=== PATIENT | female | born 1970 | race Two or more races ===

== ENCOUNTER 2025-01-12 14:58 | Emergency (ER) | payer MEDICAID, OTHER ==
[~2025-01-12] VITALS: Ht 165.1 cm; Wt 93.9 kg
[2025-01-12 14:59] VITALS: BP 151/80; PULSE 67; RESP 16; TEMP 98.4; O2SAT 94
--- NOTE | 2025-01-12 16:23 | ED.PDOC ---
Musculoskeletal HPI Comments 54 year old female presents to the ED with chief complaint of right shoulder pain. Patient reports that she has been experiencing right shoulder pain and limited ROM since 12/22/24 after helping transport her brother from a gurney to his bed. Patient relays that she heard a "pop" at the time and her pain has continued since then. Patient states she is unable to lift her arm up well and the pain radiates down to her fingers. Patient denies any fall, injury, numbness, weakness, or tingling of right upper extremity. Chief Complaint: Upper Extremity Time Seen by MD: 16:20 Primary Care Provider: NONE Reviewed Notes: Nurses Notes, Medications, Allergies Allergies: Coded Allergies: Metronidazole (Verified Allergy, Severe, 01/12/25) Information Source: Patient Mode of Arrival: Ambulatory Location: Right Extremity Location: Shoulder Timing: Days Prehospital treatment: None Severity: Moderate Able to Move Extremity: Yes Bear Weight: Fully Pain: Moderate Mechanism: Hyperextension Circumstances: Other (Helping brother from bed) Symptoms: Pain DVT Risk Factors: NONE Associated signs and symptoms: Shoulder pain Past Medical History PAST MEDICAL HISTORY: Denies Surgical History: Denies all surgeries SURVEILLANCE SYSTEM MONITOR History: No Pertinent SURVEILLANCE SYSTEM MONITOR History Family History Family History: Reviewed,noncontributory to illness Social History Smoker: Non-Smoker Alcohol: Denies ETOH Use Drugs: Denies Drug Use Lives In: Home Constitutional: denies: chills, diaphoresis, fatigue, fever, malaise, sweats, weakness, others EENTM: denies: blurred vision, double vision, ear bleeding, ear discharge, ear drainage, ear pain, ear ringing, eye pain, eye redness, hearing loss, mouth pain, mouth swelling, nasal discharge, nose bleeding, nose congestion, nose pain, photophobia, tearing, throat pain, throat swelling, voice changes, others Respiratory: denies: cough, hemoptysis, orthopnea, SOB at rest, shortness of breath, SOB with excertion, stridor, wheezing, others Cardiovascular: denies: chest pain, dizzy spells, diaphoresis, Dyspnea on exertion, edema, irregular heart beat, left arm pain, lightheadedness, palpitations, PND, syncope, others Gastrointestinal: denies: abdomen distended, abdominal pain, blood streaked bowels, constipated, diarrhea, dysphagia, difficulty swallowing, hematemesis, melena, nausea, poor appetite, poor fluid intake, rectal bleeding, rectal pain, vomiting, others Genitourinary: denies: abnormal vagina bleeding, burning, dyspareunia, dysuria, flank pain, frequency, hematuria, incontinence, pain, , vagina discharge, urgency, others Neurological: denies: dizziness, fainting, headache, left sided numbness, left sided weakness, numbness, paresthesia, pre-existing deficit, right sided numbness, right sided weakness, seizure, speech problems, tingling, tremors, weakness, others Musculoskeletal: reports: others (Rt shoulder pain); denies: back pain, gout, joint pain, joint swelling, muscle pain, muscle stiffness, neck pain Integumetry: denies: bruises, change in color, change in hair/nails, dryness, laceration, lesions, lumps, rash, wounds, others Allergic/Immunocompromised: denies: Difficulty Healing, Frequent Infections, Hives, Itching, others Hematologic/Lymphatic: denies: anemia, blood clots, easy bleeding, easy bruising, swollen glands, others Endocrine: denies: excessive hunger, excessive sweating, excessive thirst, excessive urination, flushing, intolerance to cold, intolerance to heat, unexplained weight gain, unexplained weight loss, others Psychiatric: denies: anxiety, bipolar disorder, depression, hopeless, panic disorder, schizophrenia, sleepless, suicidal, others All Other Systems: Reviewed and Negative Physical Exam General Appearance: No Apparent Distress, Normal HEENT: Normal ENT Inspection, Pharynx Normal, TMs Normal Neck: Full Range of Motion, Non-Tender, Normal, Normal Inspection Respiratory: Chest Non-Tender, Lungs Clear, No Accessory Muscle Use, No Respiratory Distress, Normal Breath Sounds Cardiovascular: No Edema, No JVD, No Murmur, No Gallop, Normal Peripheral Pulses, Regular Rate/Rhythm Breast Exam: Deferred Gastrointestinal: No Organomegaly, Non Tender, No Pulsatile Mass, Normal Bowel Sounds, Soft Genitalia: Deferred Pelvic: Deferred Rectal: Deferred Extremities: No calf tenderness, Normal capillary refill, Normal inspection, Normal range of motion, Non-tender, No pedal edema Musculoskeletal : Location: Right Extremity Location: Shoulder Apperance: Tenderness (Limited ROM to the right shoulder. Diffuse tenderness to the right deltoid. Distal circulation and motor skills intact.) Neurologic: Alert, bottle blower II-XII nml as Tested, No Motor Deficits, Normal Affect, Normal Mood, No Sensory Deficits Cerebellar Function: Normal Reflexes: Normal Skin: Dry, Normal Color, Warm Lymphatic: No Adenopathy Was a procedure done? Was a procedure done?: No Differential Diagnosis EXT Differential Diagnosis: Fracture, Sprain, Dislocation, Contusion, Strain X-Ray, Labs, Meds, VS Vital Signs Date Time Temp Pulse Resp B/P (MAP) Pulse Ox O2 Delivery O2 Flow Rate FiO2 01/12/25 14:59 98.4 67 16 151/80 (103) 94 98.4 Time of 1ST Reevaluation: 17:20 Reevaluation 1ST: Unchanged Patient Education/Counseling: Diagnosis, Treatment Family Education/Counseling: No Family Present Departure 1 Departure Time of Disposition: 17:52 Impression: Primary Impression: Right shoulder injury Qualified Codes: S49.91XA - Unspecified injury of right shoulder and upper arm, initial encounter Disposition: HOME / SELF CARE / HOMELESS Condition: Fair e-Prescriptions Ibuprofen (Ibuprofen) 600 Mg Tab 1 TAB PO TID, #30 TAB Prov: EDITH MIDDLETON 01/12/25 Methylprednisolone (Medrol Dosepak) 4 Mg Ady 4 MG PO UD, #21 TAB UAD Prov: EDITH MIDDLETON 01/12/25 Discharged With: Self Critical Care Note Critical Care Time?: No Stability Stability form required: No Heart Score Heart Score: Heart Score Response (Comments) Value History N/A 0 EKG N/A 0 Age N/A 0 Risk Factors N/A 0 Troponin N/A 0 Total 0 I personally scribed for EDITH MIDDLETON ([email or web address]) on 01/12/25 at 16:23. Electronically submitted by Rupert Rascon ([email or web address]). EDITH MIDDLETON January 12, 2025 16:23
[2025-01-12] MEDS ORDERED: KETOROLAC TROMETH 30 MG/ML 1ML VIAL IM ONE (16:30)
--- NOTE | 2025-01-12 17:11 | DVH ---
EXAM: XR Right Clavicle Complete, 2 or More Views CLINICAL INDICATION: pain TECHNIQUE: Frontal and lordotic views of the right clavicle. COMPARISON: None FINDINGS: BONES/JOINTS: Mild degenerative changes of the acromioclavicular and glenohumeral joints. No dislo cation. No acute fracture. SOFT TISSUES: Unremarkable. OTHER FINDINGS: . . IMPRESSION: No acute fracture.
[2025-01-12] MEDS ORDERED: METH4PAK PO (17:53)
[2025-01-12] MEDS ORDERED: IBUP-1454 PO (17:53)
== END 2025-01-12 21:22 | disposition home or self-care (01) ==
LOC: ER 14:58
DX: S49.91XA Unspecified injury of right shoulder and upper arm, initial encounter (principal); Z88.1 Allergy status to other antibiotic agents; X58.XXXA Exposure to other specified factors, initial encounter; Y93.89 Activity, other specified; Y92.89 Other specified places as the place of occurrence of the external cause; Y99.8 Other external cause status
CPT/HCPCS: 73030

== ENCOUNTER 2025-02-04 13:50 | Inpatient (IN) | payer MEDICAID ==
[~2025-02-04] VITALS: Ht 165.1 cm; Wt 101.8 kg
[~2025-02-04 13:50] MED LIST: IBUP-1454 PO; METH4PAK PO
[2025-02-04] MEDS: FAMOTIDINE (10MG/ML) 2ML VL IV ONE (16:00)
[2025-02-04] MEDS: diphenhdrAMINE HCL 50 MG/1 ML VL IV ONE ×2 (16:00→21:03)
--- NOTE | 2025-02-04 16:03 | ED.PDOC ---
HPI Allergic reaction HPI Comments HPI: 54-year-old female presents to the ED with a chief complaint of rash onset 2 days. Patient states she used hair dye 2 days ago, noticed rash on head and ears as well as facial rash. Yesterday, she noticed rash had spread to trunk, bilateral arms, shoulders and thighs. She has experienced similar episodes with hair dye in the past. Denies headache, dizziness, chest pain, shortness of breath, wheezing, fever, chills. No other symptoms or modifying factors present at this time. Vitals Temperature: 98.8 F Respiratory rate: 16 SpO2: 97% Heart rate: 81 Blood pressure: 135/92 Past Medical History: none Past Surgical History: none Social History: none GARCIA: RASH 2 DAYS. DIFFUSE. DUE TO HAIR DYE. HPI: Poor Historian. Past Medical History: Past Surgical History: REVIEW OF SYSTEMS: CONSTITUTIONAL: Denies acute: fever, diaphoresis, chills, generalized weakness. HEAD: Denies acute: headache, photophobia Eyes: Denies acute: Double vision, vision loss, eye pain, eye discharge. EARS: Denies acute: tinnitus, hearing loss, ear discharge, ear pain, THROAT: Denies acute: sore throat, swelling, difficulty swallowing , pain with swallowing, change in voice. NECK: Denies acute: neck pain, neck swelling, stiff neck. HEART: Denies acute : chest pain, palpitations, LUNGS: Denies acute: SOB, wheezing, cough, hemoptysis ABDOMEN: Denies acute: abdominal pain, Nausea, Vomiting, diarrhea, melena , hematemesis, hematochezia SKIN: Denies acute: lesions, . EXTREMITIES: Denies acute: calf pain, numbness, tingling, weakness, denies pain in extremity. Denies acute: Low back pain. Neuro: Denies acute: focal neurological deficit, motor or sensory focal neurological deficit, tremors, seizure like activity, confusion, dizziness, change in mental status, loss of bowel or bladder function, cauda equina like symptoms. : Denies acute: dysuria, hematuria, flank pain, increase in urinary frequency. PSYCH: Denies acute: hallucination, suicidal ideation, homicidal ideation. FEMALE: Denies acute: abnormal vaginal bleeding, foul odor, unusual discharge. PHYSICAL EXAM: General: -----mild---acute distress, awake and alert. Head: normocephalic, atraumatic. Neck: supple, trachea is midline, no swelling. Throat: Normal phonation. No obstruction, no swelling, no erythema Eyes:, no erythema, no purulent discharge, no proptosis, no icterus. Heart: regular rate, regular rhythm, no significant murmur appreciated. Lungs: no apparent respiratory distress, Able to speak in full sentences. No wheezing, no rhonchi, no crackles. No stridors Clear to auscultation bilaterally. Abdomen: non tender to palpation, non distended, soft, no guarding, no rebound, + bowel sounds. Neuro: Awake, Alert, oriented to name, self, situation, follows commands GCS=15. Speech is normal. Skin: no petechia, no purpura, no cyanosis, non-pale, not jaundice. Patient has a diffuse hives on the torso neck and back of the neck and behind the ears and in the posterior neck below the hairline. And diffusely in the face. Lower extremities: --no - Pitting edema no deformity, no focal swelling, no calf TTP. Makes eye contact. moves all four extremities. Face: no apparent facial droop. Ambulating in the ED independently. No nystagmus. No nuchal rigidity, Kernig's sign, Brudzinski's sign, no meningeal signs. ED COURSE: Chief Complaint: Rash Time Seen by MD: 15:35 Primary Care Provider: NONE Reviewed Notes: Medications, Allergies Allergies: Coded Allergies: Metronidazole (Verified Allergy, Severe, 01/12/25) Home Meds Active Scripts Ibuprofen (Ibuprofen) 600 Mg Tab, 1 TAB PO TID, #30 TAB Prov:EDITH MIDDLETON 01/12/25 Methylprednisolone (Medrol Dosepak) 4 Mg Ady, 4 MG PO UD, #21 TAB UAD Prov:EDITH MIDDLETON 01/12/25 Information Source: Patient Mode of Arrival: Ambulatory Severity: Mild Rash: Moderate Timing: Days Duration: Since onset Prehospital treatment: None Location: Ear, Extremities, Face, Neck, Trunk Exposed to: Chemical (hair dye) Developed: Facial Swelling, Generalized erythema, Rash History of: Prior Similar Episodes (with hair dye) Modyifying Factors: None Associated Sign and Symptoms: None Past Medical History PAST MEDICAL HISTORY: Denies Surgical History: Denies all surgeries DESIGN CELL ENGINEER History: No Pertinent DESIGN CELL ENGINEER History Family History Family History: Reviewed,noncontributory to illness Social History Smoker: Non-Smoker Alcohol: Denies ETOH Use Drugs: Denies Drug Use Lives In: Home Was a procedure done? Was a procedure done?: No Differential diagnosis (all) Differential Diagnosis: Anaphylaxis, Angioedema, Bronchospasm, Contact Dermatitis, Drug Reaction, Hypotension, Renal Failure, Respiratory Failure, Shock, Urticaria X-Ray, Labs, Meds, VS Vital Signs Date Time Temp Pulse Resp B/P (MAP) Pulse Ox O2 Delivery O2 Flow Rate FiO2 02/04/25 20:59 98.2 61 18 136/90 (105) 94 98.2 02/04/25 16:24 98.4 83 18 133/94 (107) 93 98.4 02/04/25 14:08 98.8 81 16 135/92 (106) 97 98.8 Lab Test 02/04/25 16:26 Range/Units White Blood Count 10.4 4.4-10.8 10^3/uL Red Blood Count 4.94 4.0-5.20 10^6/uL Hemoglobin 15.8 12.2-16.2 g/dL Hematocrit 47.1 H 36.0-46.0 % Mean Corpuscular Volume 95.3 80.0-100.0 fL Mean Corpuscular Hemoglobin 31.9 28.0-32.0 pg Mean Corpuscular Hemoglobin Concent 33.5 32.0-36.0 g/dL Red Cell Distribution Width 13.3 11.8-14.3 % Platelet Count 261 140-450 10^3/uL Mean Platelet Volume 8.6 6.9-10.8 fL Neutrophils (%) (Auto) 61.9 37.0-80.0 % Lymphocytes (%) (Auto) 22.3 10.0-50.0 % Monocytes (%) (Auto) 8.1 0.0-12.0 % Eosinophils (%) (Auto) 7.0 0.0-7.0 % Basophils (%) (Auto) 0.7 0.0-2.0 % Neutrophils # (Auto) 6.4 1.6-8.6 10 ^3/uL Lymphocytes # (Auto) 2.3 0.4-5.4 10 ^3/uL Monocytes # (Auto) 0.8 0-1.3 10 ^3/uL Eosinophils # (Auto) 0.7 0-0.8 10 ^3/uL Basophils # (Auto) 0.1 0-0.2 10 ^3/uL Nucleated Red Blood Cells 0.0 % Erythrocyte Sedimentation Rate 13 0-20 mm/hr Sodium Level 146 H 136-145 mmol/L Potassium Level 3.9 3.5-5.1 mmol/L Chloride Level 114 H 98-107 mmol/L Carbon Dioxide Level 25 20-31 mmol/L Anion Gap 7 5-15 Blood Urea Nitrogen 18 9-23 mg/dL Creatinine 1.04 H 0.550-1.02 mg/dL Glomerular Filtration Rate Calc 63 >90 mL/min BUN/Creatinine Ratio 17.3 10.0-20.0 Serum Glucose 92 74-106 mg/dL Calcium Level 10.3 8.7-10.4 mg/dL Magnesium Level 2.2 1.6-2.6 mg/dL Total Bilirubin 0.4 0.2-1.0 mg/dL Aspartate Amino Transferase (AST) 17 13-40 U/L Alanine Aminotransferase (ALT) 31 7-40 U/L Alkaline Phosphatase 67 46-116 U/L C-Reactive Protein High Sensitivity 0.60 <1.0 mg/dL Total Protein 7.2 5.7-8.2 g/dL Albumin 4.6 3.2-4.8 g/dL Thyroid Stimulating Hormone (TSH) 0.92 0.55-4.78 uIU/mL Hepatitis A IgM Antibody Pending Hepatitis B Surface Antigen Pending Hepatitis B Core IgM Antibody Pending Hepatitis C Antibody Pending Current Medications Medications (Trade) Dose Ordered Sig/Alyssa Route Start Time Stop Time Status Last Admin Sodium Chloride 1,000 ml @ 1,000 mls/hr Q1H ONCE IV 02/04/25 16:00 02/04/25 16:59 DC 02/04/25 17:00 Methylprednisolone Sodium Succinate (Solu Medrol) 125 mg ONCE ONCE IV 02/04/25 16:00 02/04/25 16:01 DC 02/04/25 17:00 Famotidine (Pepcid Injection) 20 mg ONCE ONCE IV 02/04/25 16:00 02/04/25 16:01 DC 02/04/25 16:00 Diphenhydramine HCl (Benadryl Injection) 25 mg ONCE ONCE IV 02/04/25 16:00 02/04/25 16:01 DC 02/04/25 16:00 Acetaminophen/ Hydrocodone Bitart ([place] 5/325MG Tab) 1 tab ONCE ONCE PO 02/04/25 18:15 02/04/25 18:16 DC 02/04/25 18:15 Dexamethasone Sodium Phosphate (Decadron Injection) 10 mg ONCE ONCE IV 02/04/25 19:00 02/04/25 19:01 DC 02/04/25 21:03 Diphenhydramine HCl (Benadryl Injection) 25 mg ONCE ONCE IV 02/04/25 19:00 02/04/25 19:01 DC 02/04/25 21:03 Time of 1ST Reevaluation: 16:05 Reevaluation 1ST: Unchanged Patient Education/Counseling: Diagnosis, Treatment Family Education/Counseling: No Family Present Comments Patient presented with the above HPI.---Diffuse rash and itchiness suspected allergic reaction---workup was initiated. patient was found with the above mentioned diagnosis. the following medications were ordered: please refer to order lists of meds and tests obtained by myself Dr. Negron. Patient ED course and VS have been stabilized. Patient has been reassessed in the ED and remained in a stable condition. Pertinent incidental findings were discussed with the patient and/or family. Patient/family voices understanding and is agreeable with plan. Patient has been observed in the ED adequate length of time to insure improvement/stability. Escalation of care considered: Consideration of escalation to observation or admission for given Benadryl and steroids and Pepcid. Patient was reassessed and she continues to have the same rash not improved. Itchiness has improved however. Patient was ADMITTED to the medicine team for further evaluation and treatment of their presentation. All the reports of any imaging studies that were ordered by myself were reviewed by myself. Departure 1 Departure Time of Disposition: 22:00 Impression: Primary Impression: Allergic reaction Additional Impressions: Pruritus Contact dermatitis Disposition: ADMITTED INPATIENT Admit to: Tele Condition: Guarded Discharged With: Self Critical Care Note Critical Care Time?: No I personally scribed for ALEJANDRO NEGRON DO ([email or web address]) on 02/04/25 at 16:03. Electronically submitted by Tiffany Bunch ([email or web address]). ALEJANDRO NEGRON DO February 04, 2025 16:03
[2025-02-04 16:57] LABS: Basophils # (auto) 0.1 10 ^3/uL (0-0.2); Basophils % (auto) 0.7 % (0.0-2.0); Eosinophils # (auto) 0.7 10 ^3/uL (0-0.8); Hematocrit 47.1 % (36.0-46.0); Hemoglobin 15.8 g/dL (12.2-16.2); Lymphocytes # (auto) 2.3 10 ^3/uL (0.4-5.4); Lymphocytes % (auto) 22.3 % (10.0-50.0); Mean Corpuscular Hemoglobin 31.9 pg (28.0-32.0); Mean Corpuscular Hgb Conc. 33.5 g/dL (32.0-36.0); Mean Corpuscular Volume 95.3 fL (80.0-100.0); Monocytes # (auto) 0.8 10 ^3/uL (0-1.3); Monocytes % (auto) 8.1 % (0.0-12.0); Neutrophils # (auto) 6.4 10 ^3/uL (1.6-8.6); Neutrophils % (auto) 61.9 % (37.0-80.0); Platelet Count (auto) 261 10^3/uL (140-450); Red Blood Cells 4.94 10^6/uL (4.0-5.20); Red Cell Distribution Width 13.3 % (11.8-14.3); White Blood Cell 10.4 10^3/uL (4.4-10.8)
[2025-02-04] MEDS: SODIUM CHLORIDE 0.9% 1,000 ML IV ONE (17:00)
[2025-02-04] MEDS: methylPREDNISolone SOD SUCC 125 MG/2 ML VL IV ONE (17:00)
[2025-02-04 17:10] LABS: Alanine Aminotransferase 31 U/L (7-40); Albumin 4.6 g/dL (3.2-4.8); Alkaline Phosphatase 67 U/L (46-116); Anion Gap 7 (5-15); Aspartate Aminotransferase 17 U/L (13-40); BUN/Creatinine Ratio 17.3 (10.0-20.0); Blood Urea Nitrogen 18 mg/dL (9-23); Calcium 10.3 mg/dL (8.7-10.4); Carbon Dioxide 25 mmol/L (20-31); Glucose 92 mg/dL (74-106); Potassium 3.9 mmol/L (3.5-5.1); Total Protein 7.2 g/dL (5.7-8.2)
[2025-02-04 17:11] LABS: Bilirubin, Total 0.4 mg/dL (0.2-1.0); Chloride 114 mmol/L (98-107); Sodium 146 mmol/L (136-145)
[2025-02-04 17:51] LABS: Erythrocyte Sedimentation Rate 13 mm/hr (0-20)
[2025-02-04] MEDS: HYDROcodone-ACET 5/325MG TAB PO ONE (18:15)
[2025-02-04] MEDS: DexAMETHasone SOD PHOS 10MG/1ML VIAL INJ IV ONE (21:03)
--- NOTE | 2025-02-04 23:25 | DVH ---
CHEST RADIOGRAPH Indication: PNA Technique: Single frontal view of the chest was obtained COMPARISON: None FINDINGS: Lines and Tubes: None Lungs: Clear Pleura: No effusion. No pneumothorax. Cardiomediastinal contours: Unremarkable IMPRESSION: No abnormality.
[2025-02-05] VITALS (8 sets, daily range): BP systolic 126–158; BP diastolic 74–105; PULSE 60–74; RESP 17–18; TEMP 97.6–98.7; O2SAT 93–98
[2025-02-05 00:08] LABS: COVID19 ANTIGEN SOFIA FIA NEGATIVE (NEGATIVE); Rapid Influenza A Negative (Negative); Rapid Influenza B Negative (Negative)
--- NOTE | 2025-02-05 01:05 | DVHHP2 ---
History of Present Illness History of Present Illness Patient is 54 years old female with past medical history of hypertension, hyperlipidemia came with a complaint of rash. As per patient she used here day and following that she started having rash in her head and ear and face initially. But rash has been spreading all over his body including to the trunk, bilateral arm, shoulder and thigh and back. Patient reported the rash was itchy and painful and he had some low-grade fever 99.8 yesterday. Patient denied any chest pain or shortness of breath, acute joint swelling, diarrhea, nausea or vomiting. Initial lab workup revealed hematocrit 47, sodium 146, chloride 114, serum creatinine 1.04. Ultrasound of the liver- Evidence of mild fatty infiltration of the liver. Past Medical History Hypertension, hyperlipidemia Past Surgical History Family History Mom and dad both had hypertension, diabetes mellitus and heart disease Past Social History Lives with the , smokes half a pack of cigarettes every day, ex alcoholic, denies substance abuse Review of Systems Review of Systems Allergy- metronidazole Patient was seen today at the bedside. Cardiovascular- deny acute chest pain or shortness of breath or cough or palpitation Respiratory denies cough or short of breath or wheezing Gastrointestinal- denies any rectal bleeding, nausea or vomiting Musculoskeletal-denies acute joint swelling or tenderness or redness Neurological- denies acute dysarthria, dysphagia, change in vision Psychiatry- denies depression or SI or HI Allergies: Coded Allergies: Metronidazole (Verified Allergy, Severe, 01/12/25) Medications Current Medications Medications Dose Ordered Sig/Alyssa Route Start Time Stop Time Status Last Admin Dose Admin Sodium Chloride 10 ml Q8HR IV 02/05/25 06:00 Diphenhydramine HCl 25 mg Q6HP PRN PO 02/04/25 22:45 Famotidine 20 mg Q12HR PO 02/05/25 10:00 Exam Vital Signs Vital Signs Date Time Temp Pulse Resp B/P (MAP) Pulse Ox O2 Delivery O2 Flow Rate FiO2 02/04/25 20:59 98.2 61 18 136/90 (105) 94 98.2 Exam General examination- patient has rash on the scalp, on the back of the neck, on the back of the ear, on the face, on the chest wall, on the upper back on the bilateral upper arm, anterior Tummy, the chest, around the thigh mostly maculopapular, on the chest wall looks like purpuric rash HEENT- PEERLA, no acute nasal discharge Cardiovascular- S1-S2 audible, rate and rhythm regular, no murmur Respiratory- CTAB, no wheeze or rhonchi Gastrointestinal-nontender, bowel sound+. Nondistended Musculoskeletal-no acute joint swelling or tenderness or redness Lower extremity- rash around the upper thigh Neurological- cranial nerves intact, no acute dysarthria or dysphagia Psychiatry- denies depression or SI or HI Skin- patient has rash on the scalp, on the back of the neck, on the back of the ear, on the face, on the chest wall, on the upper back on the bilateral upper arm, anterior Tummy, the chest, around the thigh mostly maculopapular, on the chest wall looks like purpuric rash Labs/Xrays Labs Test 02/04/25 23:20 02/04/25 16:26 Range/Units Influenza Type A Antigen Negative Negative Influenza Type B Antigen Negative Negative SARS-CoV-2 Antigen (Rapid) Negative NEGATIVE White Blood Count 10.4 4.4-10.8 10^3/uL Red Blood Count 4.94 4.0-5.20 10^6/uL Hemoglobin 15.8 12.2-16.2 g/dL Hematocrit 47.1 H 36.0-46.0 % Mean Corpuscular Volume 95.3 80.0-100.0 fL Mean Corpuscular Hemoglobin 31.9 28.0-32.0 pg Mean Corpuscular Hemoglobin Concent 33.5 32.0-36.0 g/dL Red Cell Distribution Width 13.3 11.8-14.3 % Platelet Count 261 140-450 10^3/uL Mean Platelet Volume 8.6 6.9-10.8 fL Neutrophils (%) (Auto) 61.9 37.0-80.0 % Lymphocytes (%) (Auto) 22.3 10.0-50.0 % Monocytes (%) (Auto) 8.1 0.0-12.0 % Eosinophils (%) (Auto) 7.0 0.0-7.0 % Basophils (%) (Auto) 0.7 0.0-2.0 % Neutrophils # (Auto) 6.4 1.6-8.6 10 ^3/uL Lymphocytes # (Auto) 2.3 0.4-5.4 10 ^3/uL Monocytes # (Auto) 0.8 0-1.3 10 ^3/uL Eosinophils # (Auto) 0.7 0-0.8 10 ^3/uL Basophils # (Auto) 0.1 0-0.2 10 ^3/uL Nucleated Red Blood Cells 0.0 % Erythrocyte Sedimentation Rate 13 0-20 mm/hr Sodium Level 146 H 136-145 mmol/L Potassium Level 3.9 3.5-5.1 mmol/L Chloride Level 114 H 98-107 mmol/L Carbon Dioxide Level 25 20-31 mmol/L Anion Gap 7 5-15 Blood Urea Nitrogen 18 9-23 mg/dL Creatinine 1.04 H 0.550-1.02 mg/dL Glomerular Filtration Rate Calc 63 >90 mL/min BUN/Creatinine Ratio 17.3 10.0-20.0 Serum Glucose 92 74-106 mg/dL Calcium Level 10.3 8.7-10.4 mg/dL Magnesium Level 2.2 1.6-2.6 mg/dL Total Bilirubin 0.4 0.2-1.0 mg/dL Aspartate Amino Transferase (AST) 17 13-40 U/L Alanine Aminotransferase (ALT) 31 7-40 U/L Alkaline Phosphatase 67 46-116 U/L C-Reactive Protein High Sensitivity 0.60 <1.0 mg/dL Total Protein 7.2 5.7-8.2 g/dL Albumin 4.6 3.2-4.8 g/dL Thyroid Stimulating Hormone (TSH) 0.92 0.55-4.78 uIU/mL Assessment/Plan Assessment/Plan Assessment and plan Generalized rash likely due to acute allergic reaction Rule out ITP/drug reaction/liver disease/viral infection Hypertension Hyperlipidemia Mild hyponatremia Fatty liver Obesity Smoker Ultrasound of the liver- Evidence of mild fatty infiltration of the liver. Negative for COVID-19 and flu Plan Ordered Benadryl PRN Ordered famotidine Ordered ultrasound of the liver, Pending hepatic panel Goals of care, Code status ; discussed with >15 minutes PUD prophylaxis: Famotidine DVT prophylaxis: Patient ambulating Plan discussed with Dr. Rust , nursing staff, Total time spent on patient evaluation, chart review, assessment and plan, discussion discussion >35 minutes Plan discussed with: Patient, Other (RN) My Orders Orders - VERITO SHAIKH RESIDENT Procedure Category Date Status Time Admit ADMIT 02/04/25 Transmitted 22:39 Code Status CODE 02/04/25 Transmitted 22:39 Sodium Chloride Lock PHA 02/05/25 In Process (Saline Lock Ns) 06:00 Complete Blood Count LAB 02/05/25 Logged 04:00 Comprehensive LAB 02/05/25 Logged Metabolic Panel 04:00 Cardiac DIET 02/05/25 Transmitted Diet-2gna,Lofat,Lochol Breakfast Notify Of Changes STEPHAN 02/04/25 In Process From Base 22:39 Katalina; Direct LAB 02/04/25 Logged 22:41 Hepatitis C Antibody LAB 02/04/25 In Process 22:41 Hepatitis B Surface LAB 02/04/25 In Process Antigen 22:41 Hepatitis B Core LAB 02/04/25 Logged Total Antibod 22:41 Hepatitis B Core Igm LAB 02/04/25 In Process 22:41 Acute Hepatitis Panel LAB 02/04/25 In Process 22:41 Drug Screen LAB 02/04/25 Logged 22:41 Immunoglobulin E LAB 02/04/25 Logged 22:41 Urinalysis LAB 02/04/25 Logged 22:43 Chest Xray 1 View XY 02/04/25 Resulted 22:43 Gallbladder US 02/04/25 Taken 22:44 Prothrombin Time W/ LAB 02/04/25 Logged INR 22:44 Diphenhdramine PHA 02/04/25 In Process Capsule (Benadryl 22:45 Famotidine Tablet PHA 02/05/25 In Process (Pepcid Tablet) 10:00 Date of Service: February 04, 2025 Billing Provider: MARIANO RUST MD Common Visit Codes: 40649-[id number] INP/OBS CARE (HIGH) Secondary Visit Codes: 85240-[id number] CARE PLAN 30 MINUTES VERITO SHAIKH RESIDENT February 05, 2025 01:05
--- NOTE | 2025-02-05 01:55 | DVH ---
INDICATION: CIRRHOSIS OF LIVER TECHNIQUE: Multiple real-time sonographic images of the abdomen were obtained. COMPARISON: None FINDINGS: Liver is with normal limits in size and contour measuring 13 cm but demonstrates mild diffuse increas ed echogenicity consistent with mild fatty infiltration. No focal lesion is identified in the liver. No evidence of intrahepatic or extrahepatic biliary ductal dilatation with the common bile duct measu ring 4.5 mm. Gallbladder appears unremarkable with no evidence of stones, wall thickening or pericholycystic fluid . Sonographic Kraft's sign was reportedly negative. Right kidney measures 12.6 cm and appears unremarkable with no hydronephrosis. Visualized pancreas appears unremarkable. No free fluid / fluid collection. IMPRESSION: No acute abnormality identified. Evidence of mild fatty infiltration of the liver.
[2025-02-05] MEDS: diphenhdrAMINE HCL 25 MG CAP PO PRN (05:10)
[2025-02-05 05:47] LABS: Basophils # (auto) 0 10 ^3/uL (0-0.2); Basophils % (auto) 0.4 % (0.0-2.0); Eosinophils # (auto) 0 10 ^3/uL (0-0.8); Hematocrit 45.1 % (36.0-46.0); Hemoglobin 14.9 g/dL (12.2-16.2); Lymphocytes # (auto) 0.7 10 ^3/uL (0.4-5.4); Lymphocytes % (auto) 8.7 % (10.0-50.0); Mean Corpuscular Volume 97.1 fL (80.0-100.0); Monocytes # (auto) 0.1 10 ^3/uL (0-1.3); Neutrophils # (auto) 7.7 10 ^3/uL (1.6-8.6); Neutrophils % (auto) 89.9 % (37.0-80.0); Nucleated Red Blood Cells % 0.3 %; Platelet Count (auto) 235 10^3/uL (140-450); Red Blood Cells 4.65 10^6/uL (4.0-5.20); Red Cell Distribution Width 13.7 % (11.8-14.3); White Blood Cell 8.6 10^3/uL (4.4-10.8)
[2025-02-05 05:57] LABS: Prothrombin Time 10.6 sec (9.3-11.8)
[2025-02-05 06:03] LABS: Alanine Aminotransferase 27 U/L (7-40); Albumin 4.5 g/dL (3.2-4.8); Alkaline Phosphatase 65 U/L (46-116); Anion Gap 9 (5-15); Blood Urea Nitrogen 19 mg/dL (9-23); Calcium 9.7 mg/dL (8.7-10.4); Carbon Dioxide 21 mmol/L (20-31); Sodium 143 mmol/L (136-145)
[2025-02-05 06:04] LABS: Aspartate Aminotransferase 13 U/L (13-40); BUN/Creatinine Ratio 16.2 (10.0-20.0); Bilirubin, Total 0.2 mg/dL (0.2-1.0); Chloride 113 mmol/L (98-107); Glucose 384 mg/dL (74-106)
[2025-02-05] MEDS: SODIUM CHLOR 0.9% PF (SALINE LOCK) 10ML VIAL/SYR IV SCH (06:05)
[2025-02-05] MEDS: FAMOTIDINE 20 MG TAB PO SCH (10:33)
[2025-02-05] MEDS: HYDROcodone-ACET 5/325MG TAB PO ONE (17:49)
[2025-02-06 01:00] VITALS: BP 136/75; PULSE 60; RESP 17; TEMP 98.2; O2SAT 94
[2025-02-06 05:00] VITALS: BP 142/85; PULSE 63; RESP 19; TEMP 98.2; O2SAT 96
[2025-02-06] MEDS: ACETAMINOPHEN 325 MG TAB PO PRN (05:43)
[2025-02-06 08:00] VITALS: PULSE 45; RESP 16; O2SAT 97
[2025-02-06 09:00] VITALS: BP 134/84; PULSE 45; RESP 16; TEMP 98.1; O2SAT 97
[2025-02-06 13:00] VITALS: BP 125/75; PULSE 66; RESP 18; TEMP 99.1; O2SAT 96
[2025-02-06] MEDS ORDERED: HYDR-4902 PO (14:48)
[2025-02-06 17:00] VITALS: BP 140/91; PULSE 60; RESP 17; TEMP 97.8; O2SAT 97
[2025-02-07 12:17] LABS: Hepatitis A Ab IgM Negative; Hepatitis B Core IgM Negative (Negative); Hepatitis B Surface Antigen Negative (Negative); Hepatitis C Antibody Negative (Negative)
[2025-02-08 04:07] LABS: Hepatitis B Core Total Antibod Negative (Negative)
== END 2025-02-06 17:29 | disposition home or self-care (01) | DRG 811 ==
LOC: ER 13:57 → OVERFLOW 22:39 → WEST WING 02-05 04:44
PROVIDERS: ADMIT Internal Medicine
DX: T78.40XA Allergy, unspecified, initial encounter (principal); D69.3 Immune thrombocytopenic purpura; K76.0 Fatty (change of) liver, not elsewhere classified; E87.1 Hypo-osmolality and hyponatremia; E66.9 Obesity, unspecified; I10 Essential (primary) hypertension; E78.5 Hyperlipidemia, unspecified; Z20.822 Contact with and (suspected) exposure to COVID-19; X58.XXXA Exposure to other specified factors, initial encounter; L29.9 Pruritus, unspecified; F17.210 Nicotine dependence, cigarettes, uncomplicated; Z82.49 Family history of ischemic heart disease and other diseases of the circulatory system; Z83.3 Family history of diabetes mellitus; Z88.3 Allergy status to other anti-infective agents; Z68.34 Body mass index [BMI] 34.0-34.9, adult
CPT/HCPCS: 36415; 71045; 76705; 80053; 80074; 82785; 83036; 83735; 84443; 85025; 85610; 85652; 86038; 86141; 87081; 87426; 87804; 96374; 96375; 96376; G0378; J1100; J3490